=== PATIENT | male | born 1995 | race Caucasian/White ===

== ENCOUNTER 2019-11-12 00:56 | Emergency (ER) | payer BC, OTHER ==
[2019-11-12 01:01] VITALS: BP 134/96
[2019-11-12] MEDS ORDERED: Clindamycin CAP* 150 MG PO ONE (01:17)
--- NOTE | 2019-11-12 01:19 | ED ---
Skin Complaint - HPI Summary HPI Summary: 24 year old male presents with rash to left toe. He states that he scratched the area a while ago and noticed some redness a couple days later. He states the redness has spread. The area has been swelling more. Denies any drainage from the area. He also states he feels unwell. He admits to chills. Denies any cough. No chest pain or shortness breath. no fever. States that also has had left lower dental pain for past two days. He is concerned as he has history of osteomyelitis on the right side of his jaw and is worried that it is reoccurring. no swelling to the jaw. - History of Current Complaint Chief Complaint: EDDentalPain Time Seen by Provider: 11/12/19 01:04 Stated Complaint: DENTAL PAIN PER PT Pain Intensity: 0 - Allergy/Home Medications Allergies/Adverse Reactions: Allergies Allergy/AdvReac Type Severity Reaction Status Date / Time No Known Allergies Allergy Verified 11/12/19 01:01 Home Medications: Home Medications Clindamycin Cap(NF) [Clindamycin Cap 300 mg Cap(NF)] 300 mg PO TID #29 cap 11/11 [Rx] PMH/Surg Hx/FS Hx/Imm Hx Endocrine/Hematology History: Denies: Hx Diabetes Cardiovascular History: Denies: Hx Hypertension, Hx Pacemaker/ICD History: Denies: Hx Renal Disease Sensory History: Denies: Hx Hearing Aid Psychiatric History: Denies: Hx Panic Disorder - Surgical History Surgery Procedure, Year, and Place: tooth extraction, tonsils. FALL 2017 [facility] Infectious Disease History: No Infectious Disease History: Denies: Traveled Outside the [place] in Last 30 Days - Family History Known Family History: Positive: Non-Contributory - Social History Alcohol Use: Occasionally Substance Use Type: Reports: None Review of Systems Positive: Chills. Negative: Fever Positive: Dental Pain Negative: Chest Pain Negative: Shortness Of Breath Positive: Rash All Other Systems Reviewed And Are Negative: Yes Physical Exam Triage Information Reviewed: Yes Vital Signs On Initial Exam: Initial Vitals Temp Pulse Resp BP Pulse Ox 99.1 F 71 19 134/96 97 11/12/19 00:57 11/12/19 00:57 11/12/19 00:57 11/12/19 00:57 11/12/19 00:57 Vital Signs Reviewed: Yes Appearance: Positive: Well-Appearing Skin: Positive: Warm, Dry, Other - erythema to left 4th toe with lesion at PIP to toe that is not draining and no flutuance Head/Face: Positive: Normal Head/Face Inspection Eyes: Positive: Normal, Conjunctiva Clear ENT: Positive: Pharynx normal Dental: Positive: Percussion Tenderness @ - 17 Respiratory/Lung Sounds: Positive: Clear to Auscultation, Breath Sounds Present Cardiovascular: Positive: Normal, RRR Musculoskeletal: Positive: Normal Neurological: Positive: Normal Psychiatric: Positive: Normal Procedures - Sedation Patient Received Moderate/Deep Sedation with Procedure: No Diagnostics - Vital Signs Vital Signs Temp Pulse Resp BP Pulse Ox 11/12/19 00:57 99.1 F 71 19 134/96 97 - Laboratory Lab Statement: Any lab studies that have been ordered have been reviewed, and results considered in the medical decision making process. Course/Dx - Course Course Of Treatment: 24 year old male presents with rash to left toe. He states that he scratched the area a while ago and noticed some redness a couple days later. He states the redness has spread. The area has been swelling more. Denies any drainage from the area. He also states he feels unwell. He admits to chills. Denies any cough. No chest pain or shortness breath. no fever. States that also has had left lower dental pain. He is concerned as he has history of osteomyelitis on the right side of his jaw and is worried that it is reoccurring. no swelling to the jaw. On exam does not currently have a fever. Percussion tenderness of tooth 17 with no abscess or erythema noted. no lymphadenopathy. Does has some erythema edema noted to left fourth toe. whitish lesion at PIP with no fluctuance noted. Discussed should do warm soaks of the area as this may turn into an abscess that needs draining. We'll place on clindamycin to cover for dental pain and cellulitis. warned signs to return to ER for such as worsening redness after 2 days or fevers. told follow up with oral surgeon about dental pain. Patient understands and agrees plan. - Differential Diagnoses - Skin Complaint Differential Diagnoses: Abscess, Cellulitis, Contact Dermatitis - Diagnoses Provider Diagnoses: Cellulitis of foot, Pain, dental - Critical Care Time Critical Care Statement: Critical care time is provided exclusive of any time spent performing procedures. Discharge ED - Sign-Out/Discharge Documenting (check all that apply): Patient Departure - Discharge Plan Condition: Good Disposition: HOME Prescriptions: Clindamycin Cap(NF) [Clindamycin Cap 300 mg Cap(NF)] 300 mg PO TID #29 cap Patient Education Materials: Cellulitis (ED) Referrals: Diaz Lopez DO [Primary Care Provider] - Additional Instructions: Take clindamycin three times a day for 10 days do warm soaks of toe Follow up with primary within 3 days follow up with oral surgeon Return to ED if develop fever, area of redness spreads after two days, or any new or worsening symptoms - Billing Disposition and Condition Condition: GOOD Disposition: Home
== END 2019-11-12 01:51 | disposition home or self-care (01) ==
LOC: ED 00:56
DX: L03.116 Cellulitis of left lower limb (principal); K08.89 Other specified disorders of teeth and supporting structures
CPT/HCPCS: 99282; A9270-GY